=== PATIENT | male | born 1930 | race Caucasian/White ===

== ENCOUNTER 2019-01-09 10:25 | Inpatient (IN) | payer MEDICARE ==
[~2019-01-09] VITALS: Ht 170.2 cm; Wt 67.6 kg
[2019-01-09] MEDS ORDERED: 0.9% SODIUM CHLORIDE 10 ML SYRINGE IVP PRN (10:45)
[2019-01-09] MEDS ORDERED: METR500 PO (10:54)
[2019-01-09] MEDS ORDERED: AMIO200T44 PO (10:54)
[2019-01-09] MEDS ORDERED: ENOX30DI5 SQ (10:54)
[2019-01-09] MEDS ORDERED: BISA5TAB12 PO (10:54)
[2019-01-09] MEDS ORDERED: ACETAMINOPHEN 1000 MG/ISO-OSM 100 ML IV ONE (11:15)
[2019-01-09] MEDS ORDERED: SODIUM CHLORIDE 0.9% 1,000 ML IV ONE ×3 (11:15→15:15)
[2019-01-09] MEDS ORDERED: PIPERACILLIN/TAZO 3.375 GM/D5W 50 ML IV ONE (11:15)
[2019-01-09 11:27] LABS: BASOPHILS % (AUTO) 0.5 % (0.0-2.0); EOSINOPHILS % (AUTO) 0.1 % (1.0-6.0); HEMATOCRIT 25.4 % (41-53); HEMOGLOBIN 8.2 g/dL (13.5-17.5); LYMPHOCYTES # (AUTO) 1.2 K/uL (1.0-4.8); LYMPHOCYTES % (AUTO) 10.4 % (22.0-44.0); MEAN CORPUSCULAR HGB CONC 32.4 G/dL (31.0-37.0); MEAN CORPUSCULAR VOLUME 83 fL (80-100); MONOCYTES # (AUTO) 0.3 K/uL (0.1-1.0); MONOCYTES % (AUTO) 2.6 % (2.0-9.0); NEUTROPHILS # (AUTO) 10.3 K/uL (1.8-7.7); RED BLOOD CELL COUNT(AUTO) 3.05 MIL/uL (4.50-5.90); RED CELL DISTRIBUTION WIDTH 16.1 % (11.5-14.5)
[2019-01-09 11:32] LABS: ANION GAP 9 mmol/L (8-16); CARBON DIOXIDE 27 mmol/L (22-29); CHLORIDE 109 mmol/L (98-107); CREATININE 2.23 mg/dL (0.60-1.30); GLOMERULAR FILTR. RATE CALC 28 mL/min (>60); GLUCOSE,RANDOM 79 mg/dL (70-110); NEUTROPHILS % (AUTO) 86.4 % (40.0-70.0); POTASSIUM 3.4 mmol/L (3.5-5.1); SODIUM SERUM 145 mmol/L (136-145); UREA NITROGEN, BLOOD 38 mg/dL (7-18)
[2019-01-09 11:38] LABS: ALANINE AMINOTRANSFERASE 22 U/L (12-78); ALBUMIN 1.1 g/dL (3.4-5.0); ALKALINE PHOSPHATASE 158 U/L (46-116); ASPARTATE AMINOTRANSFERASE 53 U/L (15-37); BILIRUBIN,TOTAL 1.1 mg/dL (0.1-1.0); TOTAL PROTEIN, SERUM 5.5 g/dL (6.4-8.2)
[2019-01-09] MEDS ORDERED: LEVOFLOXACIN 500 MG/D5% WATER 100 ML IV ONE (11:45)
[2019-01-09 11:52] LABS: B-TYPE NATRIURETIC PEPTIDE 2050 pg/mL (0-100)
[2019-01-09 11:57] LABS: INFLUENZA TYPE A NEGATIVE FOR TYPE A (NEGATIVE); INFLUENZA TYPE B NEGATIVE FOR TYPE B (NEGATIVE)
[2019-01-09 11:59] LABS: LACTIC ACID 4.6 mmol/L (0.4-2.0)
[2019-01-09 12:05] LABS: INR 1.2 (0.9-1.1); PROTHROMBIN TIME 12.1 SEC (9.4-11.6)
[2019-01-09 12:06] LABS: ABG A-A DIFF O2 579.1 mmHg (10-20.0); ABG BASE EXCESS -0.3 mmol/L (-2.0-3.0); ABG CARBOXYHEMOGLOBIN 0.3 % (0.0-1.5); ABG HCO3 24.4 mmol/L (22.0-26.0); ABG METHEMOGLOBIN 0.2 % (0.0-1.5); ABG OXYGEN CONTENT 10.4 mL/dL (15.0-23.0); ABG OXYGEN SATURATION 91.8 % (95.0-98.0); ABG OXYHEMOGLOBIN 91.3 % (94.0-100.0); ABG PCO2 39 mmHg (35-45); ABG PH 7.413 (7.35-7.450); PO2, ARTERIAL BG 85.2 mmHg (71.0-79.0); SOURCE, BLOOD GAS ARTERIAL; TEMPERATURE, FAHRENHEIT, BG 104.8 FAHREN (96.0-98.6)
[2019-01-09 12:07] LABS: O2 DEVICE,BLOOD GAS NON REBREATHER (ROOM AIR); SITE, BLOOD GAS RT RADIAL
[2019-01-09 12:08] LABS: PLATELET COUNT (AUTO) 78 K/uL (150-450)
[2019-01-09] MEDS ORDERED: VANCOMYCIN HCL 1 GM/D5% WATER 200 ML IV ONE (12:45)
[2019-01-09 13:01] LABS: APPEARANCE,URINE TURBID (CLEAR); BILIRUBIN,URINE NEGATIVE (NEGATIVE); GLUCOSE, URINE (UA) NEGATIVE (NEGATIVE); KETONES,URINE NEGATIVE (NEGATIVE); LEUKOCYTE ESTERASE ,URINE LARGE (NEGATIVE); NITRATE,URINE NEGATIVE (NEGATIVE); OCCULT BLOOD,URINE MODERATE (NEGATIVE); PH,URINE 5.5 (5.0-8.0); PROTEIN,URINE POS 1+ (NEGATIVE)
[2019-01-09 13:10] LABS: BACTERIA,URINE Many /HPF (None Seen); WBC,URINE 51-100 /HPF (0-5)
[2019-01-09 13:11] LABS: SQUAMOUS EPITHELIAL CELL,UR Few /LPF (None Seen)
[2019-01-09] MEDS ORDERED: RAPID SEQUENCE KIT [RSI] 1 EACH KIT ONE (13:27)
[2019-01-09] MEDS ORDERED: VECURONIUM BROMIDE 10 MG/VIAL IVP ONE (13:30)
[2019-01-09] MEDS ORDERED: ETOMIDATE 2 MG/ML 10 ML VIAL IVP ONE (13:30)
[2019-01-09] MEDS ORDERED: PROPOFOL 1000 MG/ISO-OSM 100 ML IV ONE (13:45)
[2019-01-09] MEDS: NOREPINEPHRINE 4 MG/D5%-WATER 250 ML IV PRN ×4 (14:33→20:40)
[2019-01-09] MEDS: PROPOFOL 1000 MG/ISO-OSM 100 ML IV PRN (14:33)
[2019-01-09] MEDS ORDERED: PHENYLEPHRINE 200 MG/D5%-WATER 250 ML IV PRN (15:15)
[2019-01-09] MEDS ORDERED: ACETAMINOPHEN 325 MG TABLET PO PRN (15:30)
[2019-01-09] MEDS ORDERED: BISACODYL 10 MG RECTAL RECTAL SUPPOSITORY PR PRN (15:30)
[2019-01-09] MEDS ORDERED: ONDANSETRON HCL 4 MG/2 ML VIAL IVP PRN (15:30)
[2019-01-09] MEDS ORDERED: HYDROCODONE/ACETAMINOPHEN 5-325 MG TABLET PO PRN (15:30)
[2019-01-09] MEDS ORDERED: MORPHINE SULFATE 2 MG/ML SYRINGE IVP PRN (15:30)
[2019-01-09] MEDS ORDERED: MAGNESIUM HYDROXIDE SUSPENSION 30 ML UDCUP PO PRN (15:30)
[2019-01-09] MEDS ORDERED: ZOLPIDEM TARTRATE 5 MG TABLET PO PRN (15:30)
[2019-01-09] MEDS ORDERED: MetroNIDAZOLE 500 MG TABLET PO SCH (16:00)
[2019-01-09] MEDS ORDERED: VANCOMYCIN HCL 1 GM/D5% WATER 200 ML IV PRN (16:00)
[2019-01-09 16:08] LABS: ABG A-A DIFF O2 558.8 mmHg (10-20.0); ABG BASE EXCESS -7.7 mmol/L (-2.0-3.0); ABG CARBOXYHEMOGLOBIN 0.3 % (0.0-1.5); ABG HCO3 18.7 mmol/L (22.0-26.0); ABG METHEMOGLOBIN 0.3 % (0.0-1.5); ABG OXYGEN CONTENT 14.5 mL/dL (15.0-23.0); ABG OXYGEN SATURATION 97.4 % (95.0-98.0); ABG OXYHEMOGLOBIN 96.8 % (94.0-100.0); ABG PCO2 38 mmHg (35-45); ABG PH 7.307 (7.35-7.450); ABG TOTAL HEMOGLOBIN 10.5 G/dL (12.0-18.0); O2 DEVICE,BLOOD GAS VENTILATOR (ROOM AIR); PEEP,BG 5 cm H2O; PO2, ARTERIAL BG 115.5 mmHg (71.0-79.0); SITE, BLOOD GAS RT BRACHIAL; SOURCE, BLOOD GAS ARTERIAL; TEMPERATURE, FAHRENHEIT, BG 98.9 FAHREN (96.0-98.6); VT, ABG 500 ml
[2019-01-09 18:00] VITALS: BP 115/54
[2019-01-09] MEDS ORDERED: PIPERACILLIN SODIUM/TAZOBACTAM 2.25 GM in DEXTROSE 5%-WATER 50 ML IV SCH (18:00)
[2019-01-09] MEDS ORDERED: SODIUM CHLORIDE 0.9% 250 ML IV ONE (18:04)
[2019-01-09] MEDS: ALBUMIN HUMAN 25%-50GM/200ML 200 ML IV SCH (18:14)
[2019-01-09] MEDS: HEPARIN SODIUM,PORCINE 5,000 UNITS/ML VIAL SQ SCH (18:15)
[2019-01-09] MEDS ORDERED: VECURONIUM BROMIDE 10 MG/VIAL IV ONE (19:00)
[2019-01-09] MEDS ORDERED: ETOMIDATE 2 MG/ML 10 ML VIAL IV ONE (19:00)
[2019-01-09] MEDS ORDERED: DAPTOMYCIN 400 MG in SODIUM CHLORIDE 0.9% 50 ML IV SCH (20:00)
[2019-01-09] MEDS: MetroNIDAZOLE 500 MG/NACL 100 ML IV SCH (20:08)
[2019-01-09] MEDS: AMIODARONE HCL 200 MG TABLET PO SCH (20:13)
[2019-01-09] MEDS: DOCUSATE SODIUM 100 MG CAPSULE PO SCH (20:13)
[2019-01-09] MEDS: MEROPENEM 500 MG in SODIUM CHLORIDE 0.9% 50 ML IV SCH (20:35)
[2019-01-09 21:59] VITALS: BP 107/41
[2019-01-09] MEDS: SODIUM CHLORIDE 0.9% 1,000 ML IV SCH (23:31)
[2019-01-10] VITALS (13 sets, daily range): BP systolic 73–116; BP diastolic 18–69
[2019-01-10] MEDS: HEPARIN SODIUM,PORCINE 5,000 UNITS/ML VIAL SQ SCH (00:21)
[2019-01-10] MEDS: ALBUMIN HUMAN 25%-50GM/200ML 200 ML IV SCH ×3 (00:22→16:00)
[2019-01-10] MEDS: NOREPINEPHRINE 4 MG/D5%-WATER 250 ML IV PRN ×4 (02:36→10:32)
[2019-01-10] MEDS: MetroNIDAZOLE 500 MG/NACL 100 ML IV SCH ×2 (02:37→10:20)
[2019-01-10] MEDS: PROPOFOL 1000 MG/ISO-OSM 100 ML IV PRN ×2 (02:40→14:19)
[2019-01-10 04:53] LABS: HEMATOCRIT 21.8 % (41-53); MEAN CORPUSCULAR HEMOGLOBIN 27.6 pg (26.0-34.0); MEAN CORPUSCULAR HGB CONC 30.5 G/dL (31.0-37.0); MEAN CORPUSCULAR VOLUME 91 fL (80-100); PLATELET COUNT (AUTO) 58 K/uL (150-450); RED BLOOD CELL COUNT(AUTO) 2.41 MIL/uL (4.50-5.90)
[2019-01-10 05:15] LABS: CALCIUM, TOTAL 6.7 mg/dL (8.8-10.5); CREATININE 3.11 mg/dL (0.60-1.30); PHOSPHORUS 7.7 mg/dL (2.5-4.9); THYROID STIMULATING HORMONE 1.04 uIU/mL (0.36-3.74)
[2019-01-10] MEDS ORDERED: PHENYLEPHRINE 200 MG/D5%-WATER 250 ML IV PRN (05:16)
[2019-01-10] MEDS ORDERED: NOREPINEPHRINE 4 MG/D5%-WATER 250 ML IV PRN (05:16)
[2019-01-10] MEDS ORDERED: PROPOFOL 1000 MG/ISO-OSM 100 ML IV PRN (05:16)
[2019-01-10 05:39] LABS: HEMOGLOBIN 6.6 g/dL (13.5-17.5)
[2019-01-10 05:42] LABS: BAND NEUTROPHILS % (MANUAL) 13 % (0-5); LYMPHOCYTES % (MANUAL) 7 % (22-44); MONOCYTES % (MANUAL) 6 % (2-9); SEGMENTED NEUTROPHILS % 74 % (40-70)
[2019-01-10] MEDS ORDERED: SODIUM CHLORIDE 0.9% 250 ML IV ONE (06:00)
[2019-01-10] MEDS ORDERED: DEXTROSE 50%-WATER 25 GM/50 ML SYRINGE IVP ONE (06:25)
[2019-01-10] MEDS: DEXTROSE 50%-WATER 25 GM/50 ML SYRINGE IVP PRN ×2 (06:44→09:57)
[2019-01-10] MEDS: MEROPENEM 500 MG in SODIUM CHLORIDE 0.9% 50 ML IV SCH (07:07)
[2019-01-10 07:08] LABS: GLUCOSE,POINT OF CARE 133 MG/DL (70-110)
[2019-01-10] MEDS: DOCUSATE SODIUM 100 MG CAPSULE PO SCH (08:05)
[2019-01-10] MEDS: AMIODARONE HCL 200 MG TABLET PO SCH (08:06)
[2019-01-10] MEDS ORDERED: FUROSEMIDE 20 MG/2 ML VIAL IVP SCH (09:00)
[2019-01-10] MEDS ORDERED: PANTOPRAZOLE SODIUM 40 MG DR TABLET PO SCH (09:00)
[2019-01-10 09:09] LABS: ABG METHEMOGLOBIN 0.3 % (0.0-1.5); SOURCE, BLOOD GAS ARTERIAL; TEMPERATURE, FAHRENHEIT, BG 98.7 FAHREN (96.0-98.6)
[2019-01-10] MEDS: SODIUM CHLORIDE 0.9% 1,000 ML IV SCH (09:42)
[2019-01-10 09:54] LABS: ABG A-A DIFF O2 616.5 mmHg (10-20.0); ABG BASE EXCESS -27.1 mmol/L (-2.0-3.0); ABG CARBOXYHEMOGLOBIN 0.2 % (0.0-1.5); ABG OXYGEN CONTENT 8.4 mL/dL (15.0-23.0); ABG OXYHEMOGLOBIN 81.6 % (94.0-100.0); ABG PCO2 32 mmHg (35-45); PO2, ARTERIAL BG 64.1 mmHg (71.0-79.0)
[2019-01-10 09:55] LABS: ABG HCO3 5.5 mmol/L (22.0-26.0); ABG PH 6.887 (7.35-7.450); ABG TOTAL HEMOGLOBIN 7.2 G/dL (12.0-18.0); O2 DEVICE,BLOOD GAS VENTILATOR (ROOM AIR); PEEP,BG 5 cm H2O; SITE, BLOOD GAS LFT RADIAL; VT, ABG 500 ml
[2019-01-10] MEDS ORDERED: SODIUM BICARBONATE [ADULT] 8.4% 50 MEQ/50 ML SYRINGE IVP ONE ×2 (10:05→10:15)
[2019-01-10] MEDS ORDERED: SODIUM BICARBONATE 100 MEQ in DEXTROSE 5%-WATER 1,000 ML IV SCH (10:30)
[2019-01-10] MEDS ORDERED: VASOPRESSIN 40 UNITS in DEXTROSE 5%-WATER 98 ML IV PRN (10:31)
[2019-01-10] MEDS ORDERED: DOPamine HCL 200 MG/D5%-WATER 250 ML IV PRN (13:00)
[2019-01-10] MEDS ORDERED: DOPamine HCL 400 MG/D5%-WATER 250 ML IV ONE (13:02)
[2019-01-10] MEDS ORDERED: CASPOFUNGIN ACETATE 70 MG in SODIUM CHLORIDE 0.9% 250 ML IV ONE (13:45)
[2019-01-10] MEDS ORDERED: MORPHINE SULFATE 100 MG/NS/PF 100 ML IV PRN (18:00)
[2019-01-10 23:59] LABS: GLUCOSE,POINT OF CARE 52 MG/DL (70-110)
[2019-01-10 23:59] LABS: GLUCOSE,POINT OF CARE 123 MG/DL (70-110)
[2019-01-10 23:59] LABS: GLUCOSE,POINT OF CARE 106 MG/DL (70-110)
[2019-01-11] MEDS ORDERED: CASPOFUNGIN ACETATE 50 MG in SODIUM CHLORIDE 0.9% 250 ML IV SCH (14:00)
== END 2019-01-10 19:01 | disposition expired | DRG 871 ==
LOC: EMS 10:28 → ICU 15:59
PROVIDERS: ADMIT Internal Medicine; ATTEND Internal Medicine
PROC: 5A1945Z Respiratory Ventilation, 24-96 Consecutive Hours (ICD-10-PCS; principal; 2019-01-09)
PROC: 0BH17EZ Insertion of Endotracheal Airway into Trachea, Via Natural or Artificial Opening (ICD-10-PCS; 2019-01-09)
PROC: 30233N1 Transfusion of Nonautologous Red Blood Cells into Peripheral Vein, Percutaneous Approach (ICD-10-PCS; 2019-01-10)
DX: A41.9 Sepsis, unspecified organism (principal); E43 Unspecified severe protein-calorie malnutrition; J96.01 Acute respiratory failure with hypoxia; N17.0 Acute kidney failure with tubular necrosis; R65.21 Severe sepsis with septic shock; J18.9 Pneumonia, unspecified organism; A04.72 Enterocolitis due to Clostridium difficile, not specified as recurrent; N17.9 Acute kidney failure, unspecified; K50.913 Crohn's disease, unspecified, with fistula; N39.0 Urinary tract infection, site not specified; N18.9 Chronic kidney disease, unspecified; Z93.3 Colostomy status; I12.9 Hypertensive chronic kidney disease with stage 1 through stage 4 chronic kidney disease, or unspecified chronic kidney disease; B95.5 Unspecified streptococcus as the cause of diseases classified elsewhere; B96.89 Other specified bacterial agents as the cause of diseases classified elsewhere; D64.9 Anemia, unspecified; E78.5 Hyperlipidemia, unspecified; I25.10 Atherosclerotic heart disease of native coronary artery without angina pectoris; I35.0 Nonrheumatic aortic (valve) stenosis; I48.91 Unspecified atrial fibrillation; Z66 Do not resuscitate; Z87.01 Personal history of pneumonia (recurrent); Z95.3 Presence of xenogenic heart valve; Z68.23 Body mass index [BMI] 23.0-23.9, adult
CPT/HCPCS: 31500; 36556; 36600; 51702; 70450; 71250; 74176; 82805; 83605; 83735; 84100; 84145; 84443; 86850; 86900; 86901; 86920; 87040; 87070; 87081; 87086; 87205; 87804; 93306; 93970; 94002; 94003; 99291; 99292; G0378; J0131; J0637; J0878; J1265; J1644; J1940; J1956; J2185; J2270; J2370; J2543; J2704; J3370; J3490; J7030; J7050; J7060; P9016; P9046